=== PATIENT | male | born 1985 | race African-American/Black ===

== ENCOUNTER 2022-10-26 06:39 | Emergency (ER) | payer OTHER, SELFPAY ==
--- NOTE | ~2022-10-26 | XR_ITS ---
EXAMINATION: XR hand LT min 3V DATE: 10/26/2022 07:58 INDICATION: Left hand trauma post fall down stairs TECHNIQUE: Posteroanterior, oblique and lateral views of the left hand were obtained. COMPARISON: None. FINDINGS: Bone alignment is normal. Tiny ovoid corticated ossicle near the tip of the lateral malleolus without evident acute donor site which could be either degenerative or sequela of old trauma. No acute fract ures. Joint spaces are normal. IMPRESSION: 1. No acute osseous abnormality. Reviewed, dictated and finalized at location A.
--- NOTE | ~2022-10-26 | XR_ITS ---
EXAMINATION: XR knee LT 3V DATE: 10/26/2022 07:58 INDICATION: Left knee trauma post fall down stairs TECHNIQUE: Anteroposterior, oblique and crosstable lateral views of the left knee were obtained COMPARISON: None. FINDINGS: Mildly impacted comminuted intra-articular fracture of the proximal tibia involving the lateral tibia l plateau with additional fracture line extending below the intercondylar eminence contact the articu lar surface of the lateral aspect of the medial tibial plateau. There is approximately 2-3 mm fractur e gap with 2 mm step-off along the articular cortex at the lateral side of the lateral tibial plateau . A subtle lucent nondisplaced fracture line extends approximately 9 cm distal to the level of the ti bial plateau. No other fractures identified. Joint spaces appear normal with large dense effusion con sistent with posttraumatic hemarthrosis. IMPRESSION: 1. Comminuted tibial plateau fracture with mild impaction and mild cortical incongruity at the latera l tibial plateau. 2. Large hemarthrosis. Reviewed, dictated and finalized at location A. IMPRESSION: 1. Comminuted tibial plateau fracture with mild impaction and mild cortical inc ongruity at the lateral tibial plateau. 2. Large hemarthrosis.
--- NOTE | ~2022-10-26 | XR_ITS ---
EXAMINATION: XR shoulder LT min 2V DATE: 10/26/2022 07:58 INDICATION: Left shoulder trauma post fall down steps TECHNIQUE: AP internally and externally rotated, AP oblique externally rotated and transscapular Y vi ews of the left shoulder were obtained. COMPARISON: None FINDINGS: Normal alignment. No fracture. Glenohumeral joint is normal. Acromioclavicular joint is normal. Soft tissues are unremarkable. Visualized portion of the left lung are clear. IMPRESSION: Negative left shoulder radiographs. Reviewed, dictated and finalized at location A.
--- NOTE | ~2022-10-26 | XR_ITS ---
EXAMINATION: XR foot LT min 3V, XR ankle LT min 3V DATE: 10/26/2022 07:58 INDICATION: Left foot and ankle trauma TECHNIQUE: 1. Anteroposterior, mortise and lateral view of the left ankle were obtained. 2. Dorsoplantar, two oblique and lateral views of the left foot were obtained. COMPARISON: None. FINDINGS: Alignment of the left foot and ankle is normal. No fracture. Joint spaces are well maintained. No ank le joint effusion. The soft tissues are unremarkable. IMPRESSION: 1. Negative left foot and ankle radiographs. Reviewed, dictated and finalized at location A. IMPRESSION: 1. Negative left foot and ankle radiographs.
[2022-10-26 06:43] VITALS: BP 160/89; PULSE 84; RESP 16; O2SAT 100
[2022-10-26 07:01] VITALS: PULSE 85; RESP 15; TEMP 37; O2SAT 100
--- NOTE | 2022-10-26 07:13 | ED.FALL ---
HPI - Fall General Chief Complaint: Fall Stated Complaint: Fall down steps, L leg pain Time Seen by Provider: 10/26/22 06:55 History of Present Illness HPI Narrative: 36-year-old male presented the emergency department for evaluation after having a fall down approximately 14 steps. Patient states he was doing work on his house when he fell. Patient states he primarily injured his left side. Patient denies striking head denies loss of consciousness. Patient does have abrasions to his left shoulder and left arm. Patient is complaining of left shoulder pain left hand pain left knee pain left foot and ankle pain. Patient states his tetanus is up-to-date. Related Data Allergies Allergy/AdvReac Type Severity Reaction Status Date / Time No Known Allergies Allergy Verified 10/26/22 06:58 Review of Systems Review of Systems: All systems reviewed & are unremarkable except as noted in HPI and below Exam Narrative: APPEARANCE: Well appearing, no pain, no distress, well-nourished. HEAD: normocephalic, atraumatic. EYES: PERRLA/EOMI, conjunctivae clear. NOSE: Normal no drainage NECK: Supple. No adenopathy, no masses. RESPIRATORY: Airway patent, respirations nonlabored. Clear to auscultation bilaterally, no rales, rhonchi, wheezing. CARDIOVASCULAR: Regular rate and rhythm without murmurs rubs or gallops. ABDOMINAL: Soft, nontender, nondistended, normal bowel sounds MUSCULOSKELETAL: Moves all extremities. Decreased range of motion at left shoulder secondary to pain, no deformity. Tenderness at left hand. Left knee swelling and tenderness. Left foot tenderness. Neurovascular intact for upper and lower extremities bilaterally NEURO: Alert. Cranial nerves II through XII intact. Good gait. Good coordination SKIN: Abrasions to left shoulder and left upper arm Course Course Emergency Course: 36-year-old male presented the emergency department for evaluation of left shoulder and knee and foot pain after a fall. Imaging was ordered to evaluate for fracture or dislocation. Patient's wounds were cleansed. Patient's tetanus is up-to-date. Patient was provided IV pain medications. X-ray of the knee showed a tibial plateau fracture. Case was discussed with Dr. Hayward and he recommended a knee immobilizer and he will see the patient as outpatient. Dr. Hayward did suspect patient would need ultimately to be seen outpatient by [facility]. Patient's wounds were dressed and patient was educated on the wound care. Patient was also placed and a immobilizer and was able to ambulate on crutches. Patient was comfortable with the plan for discharge and close follow-up. Patient was provided medications for pain control for outpatient all questions and concerns were addressed. Vital Signs Vital signs: Vital Signs Pulse Rate 84 10/26/22 06:43 Respiratory Rate 16 10/26/22 06:43 Blood Pressure 160/89 H 10/26/22 06:43 Pulse Oximetry 100 10/26/22 06:43 Oxygen Delivery Room Air 10/26/22 06:43 Temperature 98.6 F 10/26/22 07:01 Pulse Rate 72 10/26/22 09:56 Respiratory Rate 18 10/26/22 09:56 Blood Pressure 137/82 10/26/22 09:56 Pulse Oximetry 100 10/26/22 09:56 Oxygen Delivery Room Air 10/26/22 06:43 MDM - Fall Differential Diagnosis Differential diagnosis: Likely dislocation of shoulder region, fracture of wrist and other (Knee fracture, femur fracture, tib-fib fracture, foot fracture) Imaging Data Radiologist's impression: Impressions Ankle X-Ray 10/26/22 08:09 IMPRESSION: 1. Negative left foot and ankle radiographs. Foot X-Ray 10/26/22 08:09 IMPRESSION: 1. Negative left foot and ankle radiographs. Shoulder X-Ray 10/26/22 08:11 IMPRESSION: Negative left shoulder radiographs. Knee X-Ray 10/26/22 08:23 IMPRESSION: 1. Comminuted tibial plateau fracture with mild impaction and mild cortical incongruity at the lateral tibial plateau. 2. Large hemarthrosis. Hand X-Ray
[2022-10-26] MEDS: HYDROmorphone HCL INJ (*CRX) 1 MG/ML SYR 0.5 MG IV PUSH (07:21)
[2022-10-26 09:56] VITALS: BP 137/82; PULSE 72; RESP 18; O2SAT 100
== END 2022-10-26 09:58 | disposition home or self-care (01) ==
PROVIDERS: Emergency Provider Emergency Medicine
DX: S82.142A Displaced bicondylar fracture of left tibia, initial encounter for closed fracture (principal); S50.812A Abrasion of left forearm, initial encounter; W10.9XXA Fall (on) (from) unspecified stairs and steps, initial encounter
CPT/HCPCS: 73030; 73130; 73562; 73610; 73630; 96374; 99284; J1170